=== PATIENT | female | born 1980 | race Caucasian/White ===

== ENCOUNTER 2016-11-08 23:10 | Inpatient (IN) | payer OTHER ==
--- NOTE | ~2016-11-08 | PN ---
Unit #: [id number] #: [id number] Patient: SARAH VÁSQUEZ [id number] [facility] [address] [place] [address] [id number] I MR#: [id number] NAME: SARAH VÁSQUEZ ROOM: [facility] Age: 36 Sex: F Admission Date: 11/08/2016 : 1980 Attending Physician: Beto Wisdom M.D. Admitting Physician: Beto Wisdom M.D. Primary Care Physician: Bertha Wang PROGRESS NOTES DATE 11/14/2016 DISCUSSION Sarah continues to show improvement today. Her mood is euthymic with a brighter affect. She is alert and fully oriented with no evidence of psychosis and no paranoia. She has no active SI today. ASSESSMENT Major depression with psychotic features. PLAN We will continue with current treatment plan anticipating discharge in the morning when transportation becomes available. Dictated by... Bertha SorensenH/bzg TD: 11/15/2016 07:43 JOB #: [id number] [facility] PROGRESS NOTES Page 1 of 1 X Beto Wisdom MD PROGRESS NOTE
--- NOTE | ~2016-11-08 | PN ---
Unit #: [id number] #: [id number] Patient: SARAH VÁSQUEZ [id number] [facility] [address] [place] [address] [id number] I MR#: [id number] NAME: SARAH VÁSQUEZ ROOM: P110 Age: 36 Sex: F Admission Date: 11/08/2016 : 1980 Attending Physician: Beto Wisdom M.D. Admitting Physician: Beto Wisdom M.D. Primary Care Physician: Bertha Wang PROGRESS NOTES DATE 11/11/2016 DISCUSSION Sarah continues to be a little bit better today although she continues to actively resist participation in groups and activities. She does appear to be mildly distractible today and maybe having psychotic symptoms that she is not willing to admit. She is alert and oriented to person and location. Memory and concentration are only fair, and her thought processes continue to be somewhat stilted and appear somewhat paranoid. ASSESSMENT Major depression with psychotic features. PLAN We will add Risperdal 1 mg at bedtime for psychotic features and continue hospitalization. Dictated by... Beto Wisdom M.D. H/bzg TD: 11/11/2016 11:52 JOB #: [id number] [facility] PROGRESS NOTES Page 1 of 1 X Beto Wisdom MD X PROGRESS NOTE
--- NOTE | ~2016-11-08 | DS ---
Unit #: [id number] #: [id number] Patient: SARAH VÁSQUEZ [id number] [facility] [address] [place] [address] [id number] I MR#: [id number] NAME: SARAH VÁSQUEZ ROOM: [facility] Age: 36 Sex: F Admission Date: 11/08/2016 : 1980 Discharge Date: 11/15/2016 Attending Physician: Beto Wisdom M.D. Primary Care Physician: Jose Donald M.D. DISCHARGE SUMMARY REASON FOR ADMISSION Sarah is a 36-year-old woman, who presented with rambling story of conflict with her boyfriend and apparently in a psychotic state having been noncompliant with her medications. She was admitted for stabilization. DIAGNOSTIC STUDIES LABORATORY RESULTS: CBC and CMP were within normal limits. HOSPITAL COURSE The patient was admitted and placed on suicide and psychosis precautions. Her home medications were restarted except for Adderall due to the possibility of overuse and activation. Risperidone was added for psychotic features of depression and she tolerated this well with good benefit. She became less depressed and nonpsychotic and her affect improved with no paranoia. She was able to contract for safety on the date of discharge. DISCHARGE DIAGNOSES AXIS I: Major depression with psychotic features. AXIS II: Borderline personality traits. AXIS III: None acute. AXIS IV: AXIS V: DISCHARGE INSTRUCTIONS Follow up with [facility] mental health and primary care physician. DISCHARGE MEDICATIONS Effexor XR 150 mg daily for depression and Risperdal 1 mg at bedtime for mood stability. CONDITION AT DISCHARGE Improved. PROGNOSIS Good. DIET AND ACTIVITY Ad tequila. Unit #: [id number] #: [id number] Patient: SARAH VÁSQUEZ Dictated by... Bertha Sorensen/rajesh TD: 11/15/2016 12:47 JOB #: [id number] DISCHARGE SUMMARY Page 1 of 1 X Beto Wisdom MD X DISCHARGE SUMMARY
--- NOTE | ~2016-11-08 | HP ---
Unit #: [id number] #: [id number] Patient: SARAH VÁSQUEZ [id number] [facility] [address] [place] [address] [id number] I MR#: [id number] NAME: SARAH VÁSQUEZ ROOM: P110 Age: 36 Sex: F Admission Date: 11/08/2016 : 1980 Attending Physician: Beto Wisdom M.D. Admitting Physician: Beto Wisdom M.D. Primary Care Physician: Jose Donald M.D. HISTORY AND PHYSICAL HISTORY OF PRESENT ILLNESS Sarah is a 36 year old admitted to [address] [place] [address] with psychotic behavior. She is a poor historian so her history is taken from her chart. PAST MEDICAL HISTORY Nothing significant. PAST SURGICAL HISTORY Pelvic lap. ALLERGIES Aspirin, Benadryl. SOCIAL HISTORY Smokes 1 pack per day. Drinks alcohol socially. Denies illicit drug use. FAMILY HISTORY Medically noncontributory. REVIEW OF SYSTEMS CONSTITUTIONAL: No fever or chills. HEENT: Denies any sore throat, ear pain or runny nose. CARDIOVASCULAR: Denies chest pain, irregular heart rhythm or palpitations. CHEST: Denies shortness of breath or cough. No hemoptysis. GASTROINTESTINAL: Denies nausea, vomiting, diarrhea or chronic constipation. ENDOCRINE: Denies history of increased thirst or urination. No recent significant weight loss or gain. GENITOURINARY: Denies dysuria, frequency, or hematuria. SKIN: Denies any rashes. HEMATOLOGIC: Denies history of increased bleeding or bruising. MUSCULOSKELETAL: Denies any hot, swollen joints. No generalized muscle pain. NEUROLOGIC: Denies problems with vision or speech. No frequent, severe headaches. No numbness, tingling or weakness in any extremities. Denies loss of bladder or bowel control. CURRENT MEDICATIONS 1. Effexor XR 150 mg daily. 2. Nicotine patch 14 mg daily. 3. Vistaril p.r.n. 4. Milk of Magnesia p.r.n. 5. Maalox p.r.n. Unit #: [id number] #: [id number] Patient: SARAH VÁSQUEZ 6. Tylenol p.r.n. PHYSICAL EXAMINATION GENERAL: Alert, well-nourished, in no apparent distress. VITAL SIGNS: Blood pressure 100/66, heart rate 80, respirations 16, temperature 98.6. WEIGHT: 112. HEIGHT: 4 feet 10 inches. SKIN: Warm and dry without rash or lesion. HEENT: Normocephalic. TMs not viewed. Oral and nasal passages clear. Conjunctivae clear. PERRLA. EOMs intact. NECK: Supple without lymphadenopathy or thyromegaly. HEART: Regular rate and rhythm without murmur. LUNGS: Clear. ABDOMEN: Soft, nontender. : Not done. EXTREMITIES: No evidence of cyanosis, clubbing or edema. Moves all without focal deficit. NEUROLOGICAL: Grossly within normal limits. Cranial Nerves: II: Visual camacho are intact. III, IV AND : Extraocular movements are intact. Pupils are equal, round and reactive to light. V: Facial sensation is grossly normal. VII: Facial movements and expression are normal. VIII: Auditory acuity grossly intact. IX, X: Uvula is midline. Phonation is normal. XI: Patient shrugs shoulders and turns head normally. XII: Tongue protrudes in the midline. Sensory and Motor Function: Sensory and motor sensation is grossly normal. Motor: moves all extremities well. Coordination: Gait is normal. Deep Tendon Reflexes: Intact. IMPRESSION Psychiatric admission. RECOMMENDATIONS PSYCHIATRIC: Per psychiatrist. MEDICAL: See no contraindications to participate in facility's activities. MEDICAL PROGNOSIS Good. MEDICAL CONDITION Stable. Dictated by... Emelia Castle P.A.-C. for Bertha Sen/mahendra TD: 11/09/2016 19:46 JOB #: [id number] Unit #: [id number] #: [id number] Patient: SARAH VÁSQUEZ HISTORY AND PHYSICAL Page 1 of 1 X Emelia Castle HISTORY AND PHYSICAL
--- NOTE | ~2016-11-08 | PN ---
Unit #: [id number] #: [id number] Patient: SARAH VÁSQUEZ [id number] [facility] [address] [place] [address] [id number] I MR#: [id number] NAME: SARAH VÁSQUEZ ROOM: [facility] Age: 36 Sex: F Admission Date: 11/08/2016 : 1980 Attending Physician: Beto Wisdom M.D. Admitting Physician: Beto Wisdom M.D. Primary Care Physician: Bertha Wang PROGRESS NOTES DATE OF SERVICE: 11/12/2016 DISCUSSION Sarah shows improvement today and tolerated her risperidone with no adverse side effects last night. Her mood is better, but less irritable and a brighter range of affect. She is alert and fully oriented. Her memory and concentration are fair to good. Her thought processes are logical with less paranoia. She has no active suicidal ideation today. ASSESSMENT Major depression with psychotic features. PLAN Continue current treatment plan. Anticipate discharge early in the week. Dictated by... Bertha Sorensen/rajesh TD: 11/12/2016 12:27 JOB #: [id number] [facility] PROGRESS NOTES Page 1 of 1 X Beto Wisdom MD PROGRESS NOTE
--- NOTE | ~2016-11-08 | PN ---
Unit #: [id number] #: [id number] Patient: SARAH VÁSQUEZ [id number] [facility] [address] [place] [address] [id number] I MR#: [id number] NAME: SARAH VÁSQUEZ ROOM: P110 Age: 36 Sex: F Admission Date: 11/08/2016 : 1980 Attending Physician: Beto Wisdom M.D. Admitting Physician: Beto Wisdom M.D. Primary Care Physician: Bertha Wang PROGRESS NOTES DATE OF SERVICE 11/13/2016 DISCUSSION Sarah continues to be somewhat isolative in her room but her affect appears brighter and her mood is better. She is alert and fully oriented now. Her memory and concentration are fair. Her thought processes are logical with no active evidence of psychosis. ASSESSMENT Major depression with psychotic features. PLAN Continue current treatment plan anticipating discharge tomorrow or soon thereafter. Dictated by... Bertha Sorensen/herensto TD: 11/14/2016 03:56 JOB #: [id number] [facility] PROGRESS NOTES Page 1 of 1 X Beto Wisdom MD X PROGRESS NOTE
--- NOTE | ~2016-11-08 | PN ---
Unit #: [id number] #: [id number] Patient: SARAH VÁSQUEZ [id number] [facility] [address] [place] [address] [id number] I MR#: [id number] NAME: SARAH VÁSQUEZ ROOM: P110 Age: 36 Sex: F Admission Date: 11/08/2016 : 1980 Attending Physician: Beto Wisdom M.D. Admitting Physician: Beto Wisdom M.D. Primary Care Physician: Bertha Wang PROGRESS NOTES DATE 11/10/2016 DISCUSSION Sarah continues to be somewhat agitated and disorganized in her thought processes although mildly improved since yesterday. Her mood remains irritable with a flat affect. She is alert and oriented to person and location, only partially to situation and partially to time. Her memory and concentration remain fair, and her thought processes are mildly disorganized. ASSESSMENT Major depression, possible psychotic features. PLAN I am going to continue to monitor her and may consider adding Risperdal in the near future if necessary. Dictated by... Bertha SorensenH/bzmoraima TD: 11/11/2016 11:35 JOB #: [id number] [facility] PROGRESS NOTES Page 1 of 1 X Beto Wisdom MD PROGRESS NOTE
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
[2016-11-09 09:49] LABS: BASOPHIL# 0.1 X10e3 (0-0.3); BASOPHIL% 1.4 % (0-2.5); EOSINOPHIL# 0.3 X10e3 (0-0.7); EOSINOPHIL% 6.6 % (0.0-7.0); HEMATOCRIT 38.8 % (35.0-45.0); HEMOGLOBIN 12.9 gm/dL (12.0-16.0); LYMPHOCYTE# 1.4 X10e3 (1.0-3.5); LYMPHOCYTE% 33.9 % (17.0-45.0); MEAN CELL VOLUME 90.5 FL (83-96); MEAN CORPUSCULAR HGB CONC 33.2 g/dL (30-36); MEAN PLATELET VOLUME 9.8 FL (6.5-11.5); MONOCYTE# 0.4 X10e3 (0-1.0); MONOCYTE% 9.9 % (3.0-12.0); NEUTROPHIL% 48.2 % (40-75); PLATELET COUNT 199 X10e3 (140-420); RED BLOOD COUNT 4.28 X10e (3.90-5.30); RED CELL DISTRIBUTION WIDTH 13.8 % (11.0-15.5); WHITE BLOOD COUNT 4.2 X10e3 (4.0-10.5)
[2016-11-09 10:08] LABS: DIFF IND NO
[2016-11-09 10:11] LABS: ALBUMIN SERUM 3.7 g/dL (3.5-5.0); BILIRUBIN,TOTAL 0.5 mg/dL (0.2-2.0); BUN/CREATININE RATIO 21.66; CALCIUM SERUM 9.3 mg/dL (8.4-10.2); CREATININE SERUM 0.6 mg/dL (0.6-1.4); GLOM FILT RATE Estimated 118.1 mL/min (>60); POTASSIUM 4.5 mmol/L (3.5-5.1); PROTEIN TOTAL SERUM 6.4 g/dL (6.0-8.3)
== END 2016-11-15 10:19 | disposition home or self-care (01) | DRG 885 ==
LOC: P1E 23:10 → P1S 11-09 18:34
PROVIDERS: Psychiatry & Neurology Psychiatry
DX: F32.3 Major depressive disorder, single episode, severe with psychotic features (principal); F60.3 Borderline personality disorder; F17.210 Nicotine dependence, cigarettes, uncomplicated; Z88.8 Allergy status to other drugs, medicaments and biological substances
CPT/HCPCS: 80053; 85025